=== PATIENT | female | born 1985 | race Caucasian/White ===

== ENCOUNTER → 2023-11-12 | Outpatient (REF) | payer OTHER ==
[2023-11-12 15:26] LABS: BASO # 0.1 10^3/uL (0.0-0.2); BASO % 0.6 % (0.0-1.0); EOS # 0.2 10^3/uL (0.0-0.5); EOS % 2.1 % (0.0-3.0); HEMOGLOBIN 14.9 g/dl (12.0-15.5); LYMPH # 2.7 10^3/uL (1.5-5.0); LYMPH % 31.5 % (24.0-44.0); MEAN CORPUSCULAR HEMOGLOBIN 30.1 pg (27.0-33.0); MEAN CORPUSCULAR HGB CONC 33.9 g/dl (32.0-36.5); MEAN CORPUSCULAR VOLUME 88.9 fl (80.0-96.0); MONO # 0.4 10^3/uL (0.0-0.8); MONO % 4.3 % (2.0-8.0); NEUTROPHILS # 5.3 10^3/uL (1.5-8.5); NEUTROPHILS % 61.3 % (36.0-66.0); PLATELET COUNT, AUTOMATED 299 10^3/uL (150-450); RED BLOOD COUNT 4.95 10^6/uL (4.00-5.40); WHITE BLOOD COUNT 8.6 10^3/uL (4.0-10.0)
[2023-11-12 15:31] LABS: ERYTHROCYTE SEDIMENTATION RATE 7 mm/hr (0-20)
[2023-11-12 15:35] LABS: ALBUMIN 4.1 G/DL (3.2-5.2); ALKALINE PHOSPHATASE 57 U/L (46-116); ALT/SGPT 21 U/L (7.0-40); AST/SGOT 10 U/L (<34); BILIRUBIN,TOTAL 0.3 MG/DL (0.3-1.2); BLOOD UREA NITROGEN 16 MG/DL (9-23); CALCIUM LEVEL 9.3 MG/DL (8.5-10.1); CARBON DIOXIDE LEVEL 29 MMOL/L (20-31); CHLORIDE LEVEL 106 MMOL/L (98-107); CHOLESTEROL LEVEL 195 MG/DL (<200); CHOLESTEROL RISK RATIO 2.98 (<5); CREATININE FOR GFR 0.68 MG/DL (0.55-1.30); GLOMERULAR FILTRATION RATE > 60.0 (>58); GLUCOSE, FASTING 98 MG/DL (60-100); HDL CHOLESTEROL 65.3 MG/DL (>40); LDL CHOLESTEROL 111.3 MG/DL (<100); MAGNESIUM LEVEL 2.3 MG/DL (1.8-2.4); NON-HDL-C 129.7 MG/DL; POTASSIUM SERUM 5.1 MMOL/L (3.5-5.1); SODIUM LEVEL 138 MMOL/L (136-145); TOTAL PROTEIN 7.1 G/DL (5.7-8.2); TRIGLYCERIDES LEVEL 92 MG/DL (<150)
[2023-11-12 15:37] LABS: THYROID STIMULATING HORMONE 0.461 uIU/ML (0.55-4.78)
[2023-11-12 15:38] LABS: TOTAL 25(OH) VITAMIN D 17.8 NG/ML (20.0-100.0)
[2023-11-12 15:51] LABS: HEMOGLOBIN A1c 5.1 % (4.0-6.0)
[2023-11-12 17:03] LABS: HIV 1&2 SCREEN NEGATIVE (NEGATIVE)
== END ==
LOC: M LAB REF 14:42
PROVIDERS: ATTEND Physician Assistant
DX: Z11.9 Encounter for screening for infectious and parasitic diseases, unspecified (principal); E66.9 Obesity, unspecified; E55.9 Vitamin D deficiency, unspecified; R42 Dizziness and giddiness; G43.909 Migraine, unspecified, not intractable, without status migrainosus

== ENCOUNTER → 2023-12-08 | Outpatient (CLI) | payer OTHER | LOC: M WHC 14:27 | PROVIDERS: ATTEND Physician Assistant | DX: Z12.31 Encounter for screening mammogram for malignant neoplasm of breast (principal); R92.333 Mammographic heterogeneous density, bilateral breasts ==

== ENCOUNTER → 2024-01-21 | Outpatient (CLI) | payer OTHER | LOC: M RAD 15:02 | PROVIDERS: ATTEND Physician Assistant | DX: G43.909 Migraine, unspecified, not intractable, without status migrainosus (principal) ==

== ENCOUNTER → 2024-06-11 | Outpatient (CLI) | payer OTHER ==
[2024-06-11 14:08] LABS: HEMOGLOBIN A1c 5.2 % (4.0-6.0)
[2024-06-11 14:23] LABS: ALBUMIN 4.3 G/DL (3.2-5.2); ALKALINE PHOSPHATASE 69 U/L (46-116); ALT/SGPT 23 U/L (7.0-40); AST/SGOT < 8 U/L (<34); BILIRUBIN,TOTAL 0.3 MG/DL (0.3-1.2); BLOOD UREA NITROGEN 12 MG/DL (9-23); CALCIUM LEVEL 10.3 MG/DL (8.5-10.1); CARBON DIOXIDE LEVEL 27 MMOL/L (20-31); CHLORIDE LEVEL 105 MMOL/L (98-107); CREATININE FOR GFR 0.68 MG/DL (0.55-1.30); GLOMERULAR FILTRATION RATE > 60.0 (>58); GLUCOSE, FASTING 81 MG/DL (60-100); MAGNESIUM LEVEL 2.2 MG/DL (1.8-2.4); POTASSIUM SERUM 4.2 MMOL/L (3.5-5.1); SODIUM LEVEL 138 MMOL/L (136-145); TOTAL PROTEIN 7.8 G/DL (5.7-8.2)
[2024-06-11 14:25] LABS: FREE T4 1.16 NG/DL (0.89-1.76)
== END ==
LOC: M RAD 13:15
PROVIDERS: ATTEND Physician Assistant
DX: M25.561 Pain in right knee (principal); M25.562 Pain in left knee; R42 Dizziness and giddiness

== ENCOUNTER → 2024-08-10 | Outpatient (CLI) | payer OTHER | LOC: M RAD 14:33 | PROVIDERS: ATTEND Physician Assistant | DX: R94.6 Abnormal results of thyroid function studies (principal); E04.1 Nontoxic single thyroid nodule ==

== ENCOUNTER → 2024-09-15 | Outpatient (CLI) | payer OTHER ==
[2024-09-15 18:44] LABS: CORTISOL AM 17.3 UG/DL (4.3-22.4)
[2024-09-15 18:46] LABS: BLOOD UREA NITROGEN 17 MG/DL (9-23); CARBON DIOXIDE LEVEL 30 MMOL/L (20-31); CHLORIDE LEVEL 105 MMOL/L (98-107); CREATININE FOR GFR 0.85 MG/DL (0.55-1.30); GLOMERULAR FILTRATION RATE > 60.0 (>58); GLUCOSE, FASTING 107 MG/DL (60-100); POTASSIUM SERUM 4.6 MMOL/L (3.5-5.1); SODIUM LEVEL 142 MMOL/L (136-145); THYROID STIMULATING HORMONE 0.847 uIU/ML (0.55-4.78); TOTAL 25(OH) VITAMIN D 29.9 NG/ML (20.0-100.0); TOTAL T3 109.7 NG/DL (60.0-181.0)
== END ==
LOC: M WUC 08:18
PROVIDERS: ATTEND Nurse Practitioner Family
DX: R94.6 Abnormal results of thyroid function studies (principal); E55.9 Vitamin D deficiency, unspecified; R42 Dizziness and giddiness

== ENCOUNTER → 2024-11-29 | Outpatient (CLI) | payer OTHER ==
[2024-11-29 08:05] VITALS: TEMP 97.7
[2024-11-29 08:40] VITALS: BP 118/76; O2SAT 100
[2024-11-29] MEDS: LIDOCAINE 1% MDV 20ML VIAL SC ONE (10:49)
== END ==
LOC: M IRPRO 07:56
PROVIDERS: ATTEND Otolaryngology
DX: E04.1 Nontoxic single thyroid nodule (principal)

== ENCOUNTER → 2025-01-02 | Outpatient (CLI) | payer OTHER | LOC: M RAD 14:35 | PROVIDERS: ATTEND Student in an Organized Health Care Education/Training Program | DX: M54.50 Low back pain, unspecified (principal) ==

== ENCOUNTER → 2025-01-13 | Outpatient (CLI) | payer OTHER ==
[2025-01-13 13:35] LABS: ALBUMIN 4.1 G/DL (3.2-5.2); BLOOD UREA NITROGEN 13 MG/DL (9-23); CALCIUM LEVEL 9.9 MG/DL (8.5-10.1); CARBON DIOXIDE LEVEL 29 MMOL/L (20-31); CHLORIDE LEVEL 103 MMOL/L (98-107); CREATININE FOR GFR 0.76 MG/DL (0.55-1.30); GLOMERULAR FILTRATION RATE > 90.0 (>58); GLUCOSE, FASTING 97 MG/DL (60-100); PHOSPHORUS LEVEL 3.7 MG/DL (2.5-4.9); POTASSIUM SERUM 4.9 MMOL/L (3.5-5.1); SODIUM LEVEL 141 MMOL/L (136-145)
== END ==
LOC: M LAB 11:58
PROVIDERS: ATTEND Nurse Practitioner Family
DX: L70.0 Acne vulgaris (principal); Z51.81 Encounter for therapeutic drug level monitoring; Z79.899 Other long term (current) drug therapy

== ENCOUNTER → 2025-07-19 | Outpatient (REF) | payer OTHER ==
[~2025-07-19] MED LIST: ALL10TAB3 PO; MECL-209 PO; SERT50TA29 PO; SPIR100T3 PO; VERA40TA PO; VITA100066 PO
[2025-07-21 12:50] LABS: Trichomonas vaginalis (AMP) NOT DETECTED (NEGATIVE)
[2025-07-21 13:13] LABS: GC DNA AMPLIFICATION NEGATIVE (NEGATIVE)
== END ==
LOC: M LAB REF 12:08
PROVIDERS: ATTEND Physician Assistant
DX: R35.89 Other polyuria (principal)

== ENCOUNTER → 2025-07-26 | Outpatient (REF) | payer OTHER ==
[2025-07-26 12:21] LABS: CALCIUM LEVEL 9.3 MG/DL (8.5-10.1); CARBON DIOXIDE LEVEL 28 MMOL/L (20-31); CHLORIDE LEVEL 103 MMOL/L (98-107); CREATININE FOR GFR 0.70 MG/DL (0.55-1.30); GLOMERULAR FILTRATION RATE > 90.0 (>58); POTASSIUM SERUM 4.5 MMOL/L (3.5-5.1); SODIUM LEVEL 140 MMOL/L (136-145)
[2025-07-26 12:23] LABS: BASO # 0.0 10^3/uL (0.0-0.2); BASO % 0.3 % (0.0-1.0); EOS # 0.2 10^3/uL (0.0-0.5); EOS % 2.4 % (0.0-3.0); LYMPH # 3.7 10^3/uL (1.5-5.0); LYMPH % 38.6 % (24.0-44.0); MONO # 0.3 10^3/uL (0.0-0.8); MONO % 3.1 % (2.0-8.0); NEUTROPHILS # 5.3 10^3/uL (1.5-8.5); NEUTROPHILS % 55.4 % (36.0-66.0); PLATELET COUNT, AUTOMATED 326 10^3/uL (150-450)
[2025-07-26 12:39] LABS: ESTIMATED AVERAGE GLUCOSE 120.0 MG/DL (60-110)
== END ==
LOC: M LAB REF 11:53
PROVIDERS: ATTEND Physician Assistant
DX: R35.89 Other polyuria (principal)